=== PATIENT | male | born 1990 | race Caucasian/White ===

== ENCOUNTER 2020-07-02 13:28 | Emergency (ER) | payer SELFPAY ==
[~2020-07-02] VITALS: Ht 193 cm; Wt 74.8 kg
[~2020-07-02 13:28] MED LIST: CEPH500 PO
[2020-07-02] MEDS ORDERED: IBUP400 PO (19:26)
== END 2020-07-02 19:32 | disposition home or self-care (01) ==
LOC: ER 13:28
DX: M70.22 Olecranon bursitis, left elbow (principal); F17.200 Nicotine dependence, unspecified, uncomplicated; Z86.19 Personal history of other infectious and parasitic diseases
CPT/HCPCS: 73080; 99283-25